=== PATIENT | male | born 1985 | race Caucasian/White ===

== ENCOUNTER 2020-01-18 19:11 | Emergency (ER) | payer SELFPAY ==
[2020-01-18] MEDS ORDERED: Diphtheria/Tetanus Toxoids,Adult (Td) 0.5 ML SDV IM ONE (19:57)
--- NOTE | 2020-01-18 20:00 | EDM.PDOC ---
ED HPI GENERAL MEDICAL PROBLEM - General Chief Complaint: Laceration Stated Complaint: HEAD LACERATION Time Seen by Provider: 01/18/20 19:45 Source of Information: Reports: Patient History Limitations: Reports: No Limitations - History of Present Illness Onset Date: 01/16/20 Location: Reports: Head Left Head Pain Score (Numeric/FACES): 7 - Related Data Allergies Allergy/AdvReac Type Severity Reaction Status Date / Time No Known Allergies Allergy Verified 01/18/20 19:24 Home Meds: Home Meds NK [No Known Home Meds] 06/28/18 [History] Past Medical History - Past Health History Medical/Surgical History: Denies Medical/Surgical History Respiratory History: Reports: Asthma Gastrointestinal History: Reports: Hemorrhoids Genitourinary History: Reports: Renal Calculus - Infectious Disease History Infectious Disease History: Reports: Chicken Pox - Past Surgical History Respiratory Surgical History: Reports: None GI Surgical History: Reports: None Male Surgical History: Reports: Lithotripsy (ESWL) Social & Family History - Family History Family Medical History: Noncontributory - Tobacco Use Smoking Status *Q: Current Some Day Smoker Years of Tobacco use: 10 Packs/Tins Daily: 0 Used Tobacco, but Quit: No Second Hand Smoke Exposure: Yes - Caffeine Use Caffeine Use: Reports: Coffee - Recreational Drug Use Recreational Drug Use: No ED ROS GENERAL - Review of Systems Review Of Systems: See Below Constitutional: Reports: No Symptoms HEENT: Reports: No Symptoms GI/Abdominal: Denies: Nausea, Vomiting Musculoskeletal: Denies: Neck Pain Skin: Reports: Other (superficial scalp laceration on the right paretal scalp) Neurological: Reports: No Symptoms ED EXAM, SKIN/RASH Exam: See Below Exam Limited By: No Limitations General Appearance: Alert, WD/WN, No Apparent Distress Ears: Normal External Exam, Normal TMs Head: Other (no swelling or crepitus) Neurological: Alert, Oriented, Normal Cognition Skin: Other (superficial laceration left parietal scalp) Course - Vital Signs Last Recorded V/S: Last Vital Signs Temp 36.0 C L 01/18/20 19:28 Pulse 80 01/18/20 19:28 Resp 16 01/18/20 19:28 BP 142/92 H 01/18/20 19:28 Pulse Ox 97 01/18/20 19:28 Departure - Departure Time of Disposition: 19:55 Disposition: Home, Self-Care 01 Condition: Good Clinical Impression: Laceration of scalp - Discharge Information *PRESCRIPTION DRUG MONITORING PROGRAM REVIEWED*: No *COPY OF PRESCRIPTION DRUG MONITORING REPORT IN PATIENT KURTIS: No Instructions: Laceration Care, Adult Referrals: PCP,None [Primary Care Provider] - Forms: ED Department Discharge Additional Instructions: Keep the wound clean and covered with antibiotic ointment. See your doctor if you have any problems. Sepsis Event Note - Evaluation Sepsis Screening Result: No Definite Risk - Focused Exam Vital Signs: Vital Signs Temp Pulse Resp BP Pulse Ox 01/18/20 19:28 36.0 C L 80 16 142/92 H 97 01/18/20 19:24 36.0 C L 80 16 142/92 H 97 Date Exam was Performed: 01/18/20 Time Exam was Performed: 19:55
--- NOTE | 2020-01-18 20:59 | CRLCT ---
INDICATION: trauma to right side of face CT FACE WITHOUT CONTRAST TECHNIQUE: Multidetector axial CT imaging was performed through the face without contrast. Coronal and sagittal reconstructions were generated. FINDINGS: There is subcutaneous edema over the right midface. No acute fractures are identified. The orbits and their contents are within normal limits. The paranasal sinuses are normally aerated. The mandible and temporomandibular joints are intact. There are carries lesions and periodontal disease involving several teeth. Mastoid air cells are clear. IMPRESSION: Subcutaneous edema over the right midface. No fracture identified. CARL RAPHAEL MD [facility] Dictated by Messi Raphael MD @ 01/18/2020 8:56:48 PM Dictated by: Messi Raphael MD @ 01/18/2020 20:57:33 (Electronically Signed)
== END 2020-01-18 21:40 | disposition home or self-care (01) ==
LOC: JP.ED 19:11
DX: S01.01XA Laceration without foreign body of scalp, initial encounter (principal); J45.909 Unspecified asthma, uncomplicated; F17.210 Nicotine dependence, cigarettes, uncomplicated; Z23 Encounter for immunization; W22.8XXA Striking against or struck by other objects, initial encounter
CPT/HCPCS: 70486; 90471; 90714; 99282; 99283-25

== ENCOUNTER 2020-04-16 18:48 | Emergency (ER) | payer SELFPAY ==
[2020-04-16] MEDS ORDERED: methylPREDNISolone Sodium Succinate 125 MG/2 ML SDV IM ONE (19:25)
--- NOTE | 2020-04-16 19:30 | EDM.PDOC ---
ED HPI GENERAL MEDICAL PROBLEM - General Chief Complaint: Headache Stated Complaint: HEADACHE Time Seen by Provider: 04/16/20 19:15 Source of Information: Reports: Patient History Limitations: Reports: No Limitations - History of Present Illness INITIAL COMMENTS - FREE TEXT/NARRATIVE: 34-year-old male who has developed a right-sided headache, ear pain, and over the last 24 hours numbness of his face and tongue, weakness of the facial muscles and inability to close his right eye. No hearing deficit, no peripheral symptoms at all. He had 2 tick bites on his abdomen earlier this summer but no rashes or joint pains. He has no history of diabetes or other chronic medical problems. Onset: Gradual Duration: Day(s): (2 to 3 days of symptoms) Location: Reports: Head, Face (Right side) Associated Symptoms: Reports: Diaphoresis, Headaches, Malaise. Denies: Fever/Chills, Nausea/Vomiting, Shortness of Breath - Related Data Allergies Allergy/AdvReac Type Severity Reaction Status Date / Time No Known Allergies Allergy Verified 01/18/20 19:24 Home Meds: Home Meds Ibuprofen 3 tab PO ASDIRECTED PRN 04/16/20 [History] Past Medical History - Past Health History Medical/Surgical History: Denies Medical/Surgical History Respiratory History: Reports: Asthma Gastrointestinal History: Reports: Hemorrhoids Genitourinary History: Reports: Renal Calculus - Infectious Disease History Infectious Disease History: Reports: Chicken Pox - Past Surgical History Respiratory Surgical History: Reports: None GI Surgical History: Reports: None Male Surgical History: Reports: Lithotripsy (ESWL) Social & Family History - Family History Family Medical History: Noncontributory - Tobacco Use Smoking Status *Q: Current Some Day Smoker Years of Tobacco use: 15 Packs/Tins Daily: 0.1 - Caffeine Use Caffeine Use: Reports: Coffee - Recreational Drug Use Recreational Drug Use: No ED ROS GENERAL - Review of Systems Review Of Systems: See Below Constitutional: Reports: Malaise, Diaphoresis. Denies: Fever, Chills HEENT: Reports: Ear Pain (Right side), Other (Right tongue numbness). Denies: Vision Change Respiratory: Denies: Shortness of Breath, Cough GI/Abdominal: Denies: Nausea, Vomiting Musculoskeletal: Reports: No Symptoms Skin: Denies: Rash Neurological: Reports: Headache, Paresthesia (Right face and tongue) Psychiatric: Reports: No Symptoms - Physical Exam Exam: See Below Exam Limited By: No Limitations General Appearance: Alert, No Apparent Distress Eye Exam: Bilateral Eye: EOMI, PERRL Ears: Other (The right tympanic membrane and canal have some erythema but no significant distortion or swelling) Throat/Mouth: Normal Inspection Head Exam: Atraumatic, Other (Patient has difficulty closing his right eye and has diffuse right facial weakness and numbness to palpation) Respiratory/Chest: No Respiratory Distress, Lungs Clear Cardiovascular: Regular Rate, Rhythm Neuro Exam (Abbreviated): Alert, Oriented, Other (Patient has no peripheral motor or sensory deficits below the neck. Strength is good in the hands and he can lift his legs to gravity without problems. All his neurologic symptoms are on the right side of his face and scalp) Extremities: Normal Inspection Psychiatric: Normal Affect, Normal Mood Skin Exam: Warm, Dry (No evidence of recent bug bites or rash) Course - Vital Signs Last Recorded V/S: Last Vital Signs Temp 98.9 F 04/16/20 18:50 Pulse 91 04/16/20 18:50 Resp 14 04/16/20 18:50 BP 109/69 04/16/20 18:50 Pulse Ox 97 04/16/20 18:50 - Orders/Labs/Meds Orders: Active Orders 24 hr Category Date Time Status LYME, TOTAL AB TEST/REFLEX Urgent Lab 04/16/20 19:44 Received Labs: Laboratory Tests 04/16/20 04/16/20 Range/Units 19:44 19:44 WBC 13.8 H (4.5-11.0) K/uL RBC 4.55 (4.30-5.90) M/uL Hgb 13.4 D (12.0-15.0) g/dL Hct 39.3 L (40.0-54.0) % MCV 86 (80-98) fL MCH 30 (27-31) pg MCHC 34 (32-36) % Plt Count 262 (150-400) K/uL Neut % (Auto) 66 (36-66) % Lymph % (Auto) 22 L (24-44) % [place] % (Auto) 12 H (2-6) % Eos % (Auto) 0 L (2-4) % Baso % (Auto) 0 (0-1) % Sodium 137 L (140-148) mmol/L Potassium 3.8 (3.6-5.2) mmol/L Chloride 102 (100-108) mmol/L Carbon Dioxide 26 (21-32) mmol/L Anion Gap 12.8 (5.0-14.0) mmol/L BUN 7 (7-18) mg/dL Creatinine 1.0 (0.8-1.3) mg/dL Est Cr Clr Drug Dosing 101.65 mL/min Estimated GFR (MDRD) > 60 (>60) Glucose 116 H (74-106) mg/dL Calcium 8.4 L (8.5-10.1) mg/dL Meds: Medications Discontinued Medications Generic Name Dose Route Start Last Admin Trade Name Rajanq PRN Reason Stop Dose Admin Methylprednisolone Sodium Succinate 125 mg 04/16/20 19:25 04/16/20 19:30 Solu-Medrol IM 04/16/20 19:26 125 mg ONETIME ONE Administration - Re-Assessments/Exams Free Text/Narrative Re-Assessment/Exam: 04/16/20 19:28 This patient has developed Merino's palsy on the right side and appears to have some inflammation of the right ear canal and tympanic membrane. CBC, BMP and Lyme's disease titer were drawn, and he was given 125 mg of IM Solu-Medrol. He will be placed on 60 mg of prednisone daily for 5 days and started on amoxicillin 500 mg 3 times a day. He is encouraged to close his eye with tape especially while sleeping, and recheck in 2 to 3 days if not improving. He will be informed of his Lyme's results when available. 04/16/20 19:51 White count returned 13.8. Patient will be placed on 60 mg of prednisone daily for 5 days. Departure - Departure Time of Disposition: 20:03 Disposition: Home, Self-Care 01 Clinical Impression: Right-sided Merino's palsy Right otitis media Qualifiers: Otitis media type: suppurative Chronicity: acute Recurrence: non-recurrent Spontaneous tympanic membrane rupture: without spontaneous rupture Qualified Code(s): H66.001 - Acute suppurative otitis media without spontaneous rupture of ear drum, right ear - Discharge Information Instructions: Merino Palsy, Adult Referrals: PCP,None [Primary Care Provider] - Forms: ED Department Discharge Care Plan Goals: Take antibiotic 3 times a day until gone, and starting tomorrow morning take 6 pills of prednisone with your first meal for 5 consecutive days. Consider rechecking in 2 to 3 days if not improving. You will be informed of the rest of the lab results when available. Sepsis Event Note (ED) - Evaluation Sepsis Screening Result: No Definite Risk - Focused Exam Vital Signs: Vital Signs Temp Pulse Resp BP Pulse Ox 04/16/20 18:50 98.9 F 91 14 109/69 97 - My Orders Last 24 Hours: My Active Orders 04/16/20 19:44 LYME, TOTAL AB TEST/REFLEX Urgent - Assessment/Plan Last 24 Hours: My Active Orders 04/16/20 19:44 LYME, TOTAL AB TEST/REFLEX Urgent
[2020-04-20 06:07] LABS: LYME IGG/IGM AB <0.91 ISR (0.00-0.90)
== END 2020-04-16 20:03 | disposition home or self-care (01) ==
LOC: JP.ED 18:48
DX: H66.001 Acute suppurative otitis media without spontaneous rupture of ear drum, right ear (principal); G51.0 Bell's palsy; F17.210 Nicotine dependence, cigarettes, uncomplicated; J45.909 Unspecified asthma, uncomplicated
CPT/HCPCS: 36415; 80048; 85025; 86618; 96372; 99284; J2930

== ENCOUNTER 2021-04-25 11:15 | Emergency (ER) | payer MEDICAID ==
--- NOTE | 2021-04-25 13:14 | EDM.PDOC ---
ED HPI GENERAL MEDICAL PROBLEM - General Chief Complaint: Flank Pain Stated Complaint: POSSIBLE KIDNEY INFECTION Time Seen by Provider: 04/25/21 13:14 Source of Information: Reports: Patient, RN Notes Reviewed History Limitations: Reports: No Limitations - History of Present Illness INITIAL COMMENTS - FREE TEXT/NARRATIVE: Austin presents today for complaints of left flank pain and right abdominal pain that has been off and on for the past three days. He states today the pain is a little worse. He also complains of impacted molars x 4, pending dental appointment in July,. He states he needs to see the eye doctor because his distant visions seems a little worse and he gets headaches a times. He states when he urinated yesterday he felt a stone pass and felt like he was kicked in the nuts. He denies any recent injury, trauma, nettie blood in the urine, difficulty with bowel movements, risk for STI, fever, chills, nausea, vomiting, cough, SOB, difficulty breathing or other concerns. He states he has tried taking ibuprofen 500mg by mouth for pain without much help. Right Flank Pain Score (Numeric/FACES): 6 - Related Data Allergies Allergy/AdvReac Type Severity Reaction Status Date / Time No Known Allergies Allergy Verified 04/25/21 13:09 Home Meds: Home Meds Ibuprofen 3 tab PO ASDIRECTED PRN 04/16/20 [History] Past Medical History - Past Health History Medical/Surgical History: Denies Medical/Surgical History Respiratory History: Reports: Asthma Gastrointestinal History: Reports: Hemorrhoids Genitourinary History: Reports: Renal Calculus Neurological History: Reports: Other (See Below) Other Neuro History: nieves's palsy - Infectious Disease History Infectious Disease History: Reports: Chicken Pox - Past Surgical History Male Surgical History: Reports: Lithotripsy (ESWL) Social & Family History - Family History Family Medical History: No Pertinent Family History - Tobacco Use Tobacco Use Status *Q: Heavy Tobacco User Years of Tobacco use: 18 Packs/Tins Daily: 1 - Caffeine Use Caffeine Use: Reports: None - Recreational Drug Use Recreational Drug Use: No ED ROS GENERAL - Review of Systems Review Of Systems: See Below Constitutional: Reports: No Symptoms HEENT: Reports: Other (pain to molars x 4, in need fo dental extraction for impacted molars) Respiratory: Reports: No Symptoms Cardiovascular: Reports: No Symptoms Endocrine: Reports: No Symptoms GI/Abdominal: Reports: Abdominal Pain (RLQ abdominal pain). Denies: Anorexia, Black Stool, Bloody Stool, Constipation, Diarrhea, Decreased Appetite, Diffi culty Swallowing, Distension, Hematemesis, Hematochezia, Melena, Nausea, Stool Incontinence, Vomiting : Reports: Flank Pain (left flank pain off and on). Denies: Discharge, Dysuria, Frequency, Hematuria, Incontinence, Urgency, Urinary Retention Musculoskeletal: Reports: No Symptoms Skin: Reports: No Symptoms Neurological: Reports: Headache (off and on for years) Psychiatric: Reports: No Symptoms Hematologic/Lymphatic: Reports: No Symptoms Immunologic: Reports: No Symptoms ED EXAM, GI/ABD - Physical Exam Exam: See Below Exam Limited By: No Limitations General Appearance: Alert, WD/WN, No Apparent Distress Eyes: Bilateral: Normal Appearance Ears: Normal External Exam, Normal Canal, Hearing Grossly Normal, Normal TMs Throat/Mouth: Normal Inspection, Normal Gums, Normal Oropharynx, Normal Voice, No Airway Compromise. No: Normal Teeth (noted dental caries without gum edema or erythema) Head: Atraumatic, Normocephalic Neck: Normal Inspection, Supple, Non-Tender, Full Range of Motion. No: Lymphadenopathy (R), Lymphadenopathy (L) Respiratory/Chest: No Respiratory Distress, Lungs Clear, Normal Breath Sounds, No Accessory Muscle Use, Chest Non-Tender. No: Crackles, Rales, Rhonchi, Wheezing, Stridor, Retractions Cardiovascular: Normal Peripheral Pulses, Regular Rate, Rhythm, No Edema, No Gallop, No Murmur, No Rub GI/Abdominal Exam: Normal Bowel Sounds, Soft, No Organomegaly, No Distention, No Abnormal Bruit, No Mass, Tender (right sided abdomen upper and lower). No: Hepatomegaly, Splenomegaly Rectal (Males) Exam: Deferred Back Exam: Full Range of Motion, CVA Tenderness (L). No: CVA Tenderness (R) Extremities: Normal Inspection, Normal Range of Motion, Non-Tender, No Pedal Edema, Normal Capillary Refill Neurological: Alert, Oriented, CN II-XII Intact, Normal Cognition, Normal Gait, Normal Reflexes, No Motor/Sensory Deficits Psychiatric: Normal Affect, Normal Mood Skin Exam: Warm, Dry, Intact, Normal Color, No Rash Lymphatic: No Adenopathy Course - Vital Signs Last Recorded V/S: Last Vital Signs Temp 36.2 C 04/25/21 13:08 Pulse 70 04/25/21 13:08 Resp 16 04/25/21 13:08 BP 132/81 04/25/21 13:08 Pulse Ox 98 04/25/21 13:08 - Orders/Labs/Meds Orders: Active Orders 24 hr Category Date Time Status Saline Lock Insert [OM.PC] Routine Oth 04/25/21 13:37 Ordered Labs: Laboratory Tests 04/25/21 04/25/21 04/25/21 Range/Units 13:45 13:45 15:50 WBC 12.9 H (4.5-11.0) K/uL RBC 4.66 (4.30-5.90) M/uL Hgb 14.3 (12.0-15.0) g/dL Hct 42.8 (40.0-54.0) % MCV 92 (80-98) fL MCH 31 (27-31) pg MCHC 33 (32-36) % Plt Count 285 (150-400) K/uL Neut % (Auto) 59.1 (36-66) % Lymph % (Auto) 30.3 (24-44) % [place] % (Auto) 8.6 H (2-6) % Eos % (Auto) 1.6 L (2-4) % Baso % (Auto) 0.4 (0-1) % Sodium 139 L (140-148) mmol/L Potassium 4.2 (3.6-5.2) mmol/L Chloride 105 (100-108) mmol/L Carbon Dioxide 27 (21-32) mmol/L Anion Gap 11.2 (5.0-14.0) mmol/L BUN 11 D (7-18) mg/dL Creatinine 0.9 (0.8-1.3) mg/dL Est Cr Clr Drug Dosing 104.36 mL/min Estimated GFR (MDRD) > 60 (>60) Glucose 100 (74-106) mg/dL Calcium 8.7 (8.5-10.1) mg/dL Total Bilirubin 0.4 (0.2-1.0) mg/dL AST 21 (15-37) U/L ALT 34 (12-78) U/L Alkaline Phosphatase 72 (46-116) U/L Total Protein 6.2 L (6.4-8.2) g/dL Albumin 3.7 (3.4-5.0) g/dL Globulin 2.5 (2.3-3.5) g/dL Albumin/Globulin Ratio 1.5 (1.2-2.2) Urine Color Yellow (YELLOW) Urine Appearance Clear (CLEAR) Urine pH 6.0 (5.0-8.0) Ur Specific [place] 1.025 (1.008-1.030) Urine Protein Negative (NEGATIVE) mg/dL Urine Glucose (UA) Negative (NEGATIVE) mg/dL Urine Ketones Negative (NEGATIVE) mg/dL Urine Occult Blood Negative (NEGATIVE) Urine Nitrite Negative (NEGATIVE) Urine Bilirubin Negative (NEGATIVE) Urine Urobilinogen 0.2 (0.2-1.0) EU/dL Ur Leukocyte Esterase Negative (NEGATIVE) Urine RBC 0-5 (0-5) Urine WBC 0-5 (0-5) Ur Epithelial Cells Not seen Amorphous Sediment Rare Urine Bacteria Rare Urine Mucus Rare Meds: Medications Discontinued Medications Generic Name Dose Route Start Last Admin Trade Name Freq PRN Reason Stop Dose Admin Famotidine 20 mg 04/25/21 13:38 04/25/21 14:00 Famotidine 20 Mg/2 Ml Sdv IVPUSH 04/25/21 13:39 20 mg ONETIME ONE Administration Ketorolac Tromethamine 30 mg 04/25/21 13:38 04/25/21 13:58 Ketorolac 30 Mg/Ml Sdv IVPUSH 04/25/21 13:39 30 mg ONETIME ONE Administration Ondansetron HCl 4 mg 04/25/21 13:38 04/25/21 13:58 Ondansetron 4 Mg/2 Ml Sdv IVPUSH 04/25/21 13:39 4 mg ONETIME ONE Administration Sodium Chloride 10 ml 04/25/21 13:37 04/25/21 14:01 Sodium Chloride 0.9% 10 Ml Syringe FLUSH 10 ml ASDIRECTED PRN Administration Keep Vein Open Tamsulosin HCl 0.4 mg 04/25/21 15:26 04/25/21 15:37 Tamsulosin 0.4 Mg Cap.Er PO 04/25/21 15:27 0.4 mg ONETIME ONE Administration - Radiology Interpretation Free Text/Narrative:: CT abdomen and pelvis per renal protocol completed. Noted small nonobstructing left renal calculi. Prominent prostate. No acute finding in the abdomen or pelvis. Departure - Departure Time of Disposition: 15:36 Disposition: Home, Self-Care 01 Condition: Good Clinical Impression: Left renal stone, Prostate enlargement - Discharge Information Instructions: Kidney Stones, [id number] Referrals: PCP,None [Primary Care Provider] - Forms: ED Department Discharge Additional Instructions: You have been evaluated and treated for abdominal and flank pain. CT found a left nonobstructing renal stone. You were given IV fluids, toradol for pain. CT also noted a prominent prostate. Take flomax for this once a day. It is very important for you to follow up with a primary provider for your ongoing dental concerns, change in vision to decreased distant vision, headaches off and on as well as ongoing management of kidney stones. Make an appointment with a primary provider in 7 to 14 days for a recheck. Return for worsening, issues or concerns. Sepsis Event Note (ED) - Evaluation Sepsis Screening Result: No Definite Risk - Focused Exam Vital Signs: Vital Signs Temp Pulse Resp BP Pulse Ox 04/25/21 13:08 36.2 C 70 16 132/81 98 04/25/21 12:44 36.2 C 70 16 132/81 98 - My Orders Last 24 Hours: My Active Orders 04/25/21 13:37 Saline Lock Insert [OM.PC] Routine - Assessment/Plan Last 24 Hours: My Active Orders 04/25/21 13:37 Saline Lock Insert [OM.PC] Routine Assessment:: Left renal stone, Prostate enlargement Austin is an alert and oriented [address] male [address] CT findings as above as well as primary care needs of dental extractions, vision screening. Lab work, CT results and need for primary care discussed with patient, he verbalizes understanding. Plan: Patient evaluated and treated for abdominal and flank pain. CT found a left nonobstructing renal stone. You were given IV fluids, toradol for pain. CT also noted a prominent prostate. Take flomax for this once a day. It is very important for you to follow up with a primary provider for your ongoing dental concerns, change in vision to decreased distant vision, headaches off and on as well as ongoing management of kidney stones. Make an appointment with a primary provider in 7 to 14 days for a recheck. Return for worsening, issues or concerns.
[2021-04-25] MEDS ORDERED: Sodium Chloride 0.9% 10 ML Syringe FLUSH PRN (13:37)
[2021-04-25] MEDS ORDERED: Ondansetron 4 MG/2 ML SDV IVPUSH ONE (13:38)
[2021-04-25] MEDS ORDERED: Ketorolac 30 MG/ML SDV IVPUSH ONE (13:38)
[2021-04-25] MEDS ORDERED: Famotidine 20 MG/2 ML SDV IVPUSH ONE (13:38)
--- NOTE | 2021-04-25 14:56 | CRLCT ---
For Patients: As a result of the Century Cures Act, medical imaging exams and procedure reports are released immediately into your electronic medical record. You may view this report before your referring provider. If you have questions, please contact your health care provider. Indication: Left flank pain Technique: Noncontrast CT abdomen and pelvis. Comparison: No comparison Findings: Heart size normal lung are clear. Unenhanced liver spleen pancreas adrenal glands unremarkable. Nonobstructing left renal calculi. No hydronephrosis abundant stool in the colon. The bowel appears unremarkable normal appendix. Urinary bladder unremarkable prostate gland slightly prominent no suspicious bony lesions. Impression: Small nonobstructing left renal calculi. No acute findings in the abdomen or pelvis. Please note that all CT scans at this facility use dose modulation, iterative reconstruction, and/or weight-based dosing when appropriate to reduce radiation dose to as low as reasonably achievable. Dictated by Amparo Maldonado MD @ 04/25/2021 2:54:02 PM (Electronically Signed)
[2021-04-25] MEDS ORDERED: Tamsulosin 0.4 MG Cap.ER PO ONE (15:26)
== END 2021-04-25 16:15 | disposition home or self-care (01) ==
LOC: JP.ED 11:15
DX: N20.0 Calculus of kidney (principal); N40.0 Benign prostatic hyperplasia without lower urinary tract symptoms; J45.909 Unspecified asthma, uncomplicated; Z72.0 Tobacco use
CPT/HCPCS: 36415; 74150; 80053; 81001; 85025; 96374; 96375; 99284; A9270; J1885; J2405; J3490

== ENCOUNTER 2022-03-09 10:08 | Emergency (ER) | payer MEDICAID ==
[2022-03-09] MEDS ORDERED: Sodium Chloride 0.9% 10 ML Syringe FLUSH PRN (11:55)
[2022-03-09] MEDS ORDERED: Ketorolac 30 MG/ML SDV IVPUSH ONE (11:56)
[2022-03-09] MEDS ORDERED: Ondansetron 4 MG/2 ML SDV IVPUSH ONE (11:56)
[2022-03-09] MEDS ORDERED: Lactated Ringers 1,000 ML IV SCH (12:00)
[2022-03-09 12:36] LABS: ESTIMATED GFR 101 mL/min (>60); TROPONIN I HIGH SENSITIVITY 7.5 pg/mL (<=60.3)
== END 2022-03-09 15:09 | disposition home or self-care (01) ==
LOC: JP.ED 10:08
DX: K52.9 Noninfective gastroenteritis and colitis, unspecified (principal); Z87.891 Personal history of nicotine dependence; Z91.048 Other nonmedicinal substance allergy status; Z20.822 Contact with and (suspected) exposure to COVID-19
CPT/HCPCS: 36415; 74018; 80053; 83605; 83690; 84484; 85025; 87635; 96361; 96374; 96375; 99284; J1885; J2405; J7120; 99281; U0002